=== PATIENT | male | born 1960 | race African-American/Black ===

== ENCOUNTER 2019-01-22 12:41 | Emergency (ER) | payer MEDICAID ==
[~2019-01-22] VITALS: Ht 175.3 cm; Wt 89.0 kg
[2019-01-22] MEDS ORDERED: DIPHENHYDRAMINE HCL/ZINC ACET 28 GM CREAM TOP STA (14:42)
[2019-01-22] MEDS ORDERED: KETOROLAC 60MG/2ML VIAL IM ONE (14:45)
[2019-01-22 16:19] VITALS: BP 139/82
== END 2019-01-22 16:24 | disposition home or self-care (01) ==
LOC: ER 12:41
DX: S40.862A Insect bite (nonvenomous) of left upper arm, initial encounter (principal); S40.861A Insect bite (nonvenomous) of right upper arm, initial encounter; G89.29 Other chronic pain; M54.5 Low back pain; F17.210 Nicotine dependence, cigarettes, uncomplicated; W57.XXXA Bitten or stung by nonvenomous insect and other nonvenomous arthropods, initial encounter; Y93.89 Activity, other specified; Y92.59 Other trade areas as the place of occurrence of the external cause
CPT/HCPCS: 96372; 99283; J1885

== ENCOUNTER 2019-01-25 14:23 | Emergency (ER) | payer MEDICAID ==
[~2019-01-25] VITALS: Ht 180.3 cm; Wt 109.0 kg
[2019-01-25 14:40] VITALS: BP 122/83
== END 2019-01-25 16:50 | disposition home or self-care (01) ==
LOC: ER 14:23
DX: S40.862A Insect bite (nonvenomous) of left upper arm, initial encounter (principal); M54.30 Sciatica, unspecified side; F17.210 Nicotine dependence, cigarettes, uncomplicated; W57.XXXA Bitten or stung by nonvenomous insect and other nonvenomous arthropods, initial encounter; Y93.9 Activity, unspecified; Y92.9 Unspecified place or not applicable
CPT/HCPCS: 99283

== ENCOUNTER 2019-11-16 14:24 | Emergency (ER) | payer MEDICAID ==
[~2019-11-16] VITALS: Ht 180.3 cm; Wt 114.0 kg
[2019-11-16] MEDS ORDERED: ACETAMINOPHEN 325MG TABLET PO ONE (17:00)
[2019-11-16] MEDS ORDERED: LIDOCAINE HCL/PF 1% 10 MG/ML 5ML VIAL IJ ONE (17:00)
[2019-11-16] MEDS ORDERED: TETANUS, DIPHTHERIA, PERTUSSIS VAC/PF 0.5ML (>7YR OLD) IM ONE (17:00)
[2019-11-16] MEDS ORDERED: MORPHINE SULFATE 2 MG/ML CPJ (NOT FOR IM USE) IV ONE (17:00)
[2019-11-16] MEDS ORDERED: BACITRACIN ZINC OINT UDPKT TOP ONE (17:00)
[2019-11-16 19:09] VITALS: BP 130/97
== END 2019-11-16 19:12 | disposition home or self-care (01) ==
LOC: ER 14:24
DX: S61.300A Unspecified open wound of right index finger with damage to nail, initial encounter (principal); X83.8XXA Intentional self-harm by other specified means, initial encounter; Y93.89 Activity, other specified; Y92.89 Other specified places as the place of occurrence of the external cause; Y99.8 Other external cause status
CPT/HCPCS: 29130; 73130; 90471; 90715; 96374; 99284; J2270; J3490; 99283